=== PATIENT | male | born 1960 ===

== ENCOUNTER 2018-07-08 18:44 | Outpatient (CLI) | payer OTHER | END 2018-07-08 19:17 | disposition home or self-care (01) | LOC: LAB 18:44 | DX: R97.20 Elevated prostate specific antigen [PSA] (principal) ==

== ENCOUNTER 2018-07-30 07:33 | Outpatient (CLI) | payer OTHER ==
[2018-07-31] MEDS ORDERED: CEFTIN 500 MG (10:46)
== END 2018-07-30 07:47 | disposition home or self-care (01) ==
LOC: SONOGRAMA 07:33
DX: R97.20 Elevated prostate specific antigen [PSA] (principal)

== ENCOUNTER 2018-07-31 10:21 | Inpatient (IN) | payer OTHER ==
[~2018-07-31] VITALS: Ht 188 cm; Wt 99.8 kg
[2018-07-31] MEDS ORDERED: CEFTIN 500 MG (10:46)
--- NOTE | 2018-07-31 10:46 | NUR ---
SE RECIBE PTE. MASCULINO ALERTA CONCIENTE Y ORIENTADO EN COMPANIA DE FAMILIAR PTE. REFIERE SINTIO ESCALOFRIO LE CHIP FIEBRE Y TUVO PEDIDA DE MEMORIA POR 3 HORAS REFIERE ESTUVO EN EL CHANTAL CON AIRE PRENDIDO PARA CALENTARSE Y NO RECUERDA MAS NADA HASTA QUE DESPERTO EN EL CHANTAL DE UN COMPANERO DE TRABAJO. SE PRESENTA PTE. A DR. GASPAR MEDICO EN TURNO REF. CHERI LE REALIZARON BIOXA DE PROSTATA.
[2018-08-02] MEDS ORDERED: CEFTIN125 MG/5 M PO (09:04)
[2018-08-02] MEDS ORDERED: CEFUROXIME500 MG PO (09:05)
== END 2018-08-04 10:09 | disposition home or self-care (01) | DRG 872 ==
LOC: ER 10:21 → SURG 12:13
PROVIDERS: ADMIT Urology
DX: A41.89 Other specified sepsis (principal); N41.0 Acute prostatitis; N39.0 Urinary tract infection, site not specified; R50.81 Fever presenting with conditions classified elsewhere; R97.20 Elevated prostate specific antigen [PSA]; B96.29 Other Escherichia coli [E. coli] as the cause of diseases classified elsewhere